=== PATIENT | female | born 1980 | race Caucasian/White ===

== ENCOUNTER 2025-02-23 10:06 | Emergency (ER) | payer OTHER, SELFPAY ==
[2025-02-23 10:08] VITALS: BP 134/96
[2025-02-23 10:48] LABS: Hematocrit 35.9 % (37.0-47.0); Hemoglobin 12.0 g/dL (12.0-16.0); Mean Corp Hgb Conc. 33.4 g/dL (33.0-37.0); Mean Corpuscular Volume 82.3 fL (81.0-99.0); Nucleated Red Blood Cells % 0 %; Platelet Count 163 10^3/uL (130-400); Red Cell Dist. Width 13.6 % (11.5-14.5)
[2025-02-23 11:02] LABS: ALT (SGPT) 16 U/L (0-35); AST (SGOT) 17 U/L (14-36); Albumin 4.3 g/dl (3.5-5.0); Alkaline Phosphatase 34 U/L (38-126); Blood Urea Nitrogen 11 mg/dl (7-17); Calcium 9.0 mg/dl (8.4-10.2); Carbon Dioxide 22 mmol/L (22-30); Chloride 107 mmol/L (98-107); Glucose 115 mg/dl (70-99); Potassium 4.0 mmol/L (3.5-5.1); Sodium 138 mmol/L (135-145); Total Protein 7.4 g/dl (6.3-8.2); eGFR > 60.00
--- NOTE | 2025-02-23 11:56 | ED.GENMED ---
History of Present Illness
General
Chief Complaint: Problems
Source: patient
Exam Limitations: none
Time Seen by Provider: 02/23/25 10:31
Nursing documentation reviewed up to this point in time: agreed with
History of Present Illness
History of Present Illness:
Patient is a 44-year-old female at an estimated 7 weeks gestation who presents emergency department today with vaginal bleeding. Patient states she that her last period was 01/13/2025. She had a positive at-home test on 02/11/2025.
This morning, patient began with bright red vaginal bleeding. She did pass a very small clot. She has bled through 1 pad as she states that she came directly to the emergency department. While bleeding is still present, she does think it may have
slowed down slightly.
Patient denies any associated lightheadedness, dizziness, shortness of breath. She has very minor lower abdominal cramping if she compares to menstrual cramps.
Patient has previously followed with [facility] however has not had initial appointment for this
Patient has a past history of a spontaneous miscarriage and an ectopic approximately 13 years ago. She has 5 living children.
Past History
Past History
ED Past Medical History: None
ED Past Surgical History: None
Social History
Tobacco: Non-smoker
Alcohol: Other
Personal:
Living: with family
Review of Systems
Review of Systems
Allergies reviewed?: Yes
All Other Systems: ROS reviewed and negative except as documented in HPI and ROS
Phy Exam
Physical Exam
Physical Exam:
Vitals: Patient's vital signs are stable. Afebrile
General: Patient is well appearing, no acute distress
Skin: Warm and dry, no rashes or lesions
Head: Normocephalic, atraumatic
Eyes: Sclera nonicteric.
Throat: Protecting airway
Neck: Normal ROM, no cervical spine tenderness, no meningismus
Cardiac: Regular rate and rhythm, no murmurs.
Pulm: Normal respiratory effort, no wheezes, rales, rhonchi heard on exam
Abdomen: Abdomen soft and nontender.
Pelvic: Bright red blood in vaginal vault. No obvious clots
Extremities: No evidence of cyanosis or edema
Neuro: AAOx3. Grossly intact.
Psychiatric: Normal affect.
Course
Orders/Labs/Results
Orders:
Orders
02/23/25 10:14
US W Transvaginal Urgent
Reason For Exam: 7 weeks preg. bleeding
02/23/25 10:35
Beta HCG Quantitative Urgent
Is this a screen?: No
Complete Blood Count/With Diff Urgent
Comprehensive Metabolic Panel Urgent
02/23/25 10:38
Type+Screen Urgent
02/23/25 14:32
ATMOSPHERIC TECHNICIAN CONSULT Urgent
Consulting Provider: Vira Cotton
Was physician already notified: Yes
Abnormal Lab Results
02/23/25
10:35
Hct 35.9 L %
(37.0-47.0)
MPV 13.0 H fL
(7.4-10.4)
Glucose 115 H mg/dl
(70-99)
Alkaline Phosphatase 34 L U/L
(38-126)
02/23/25 10:35
02/23/25 10:35
Vital Signs
Initial and Last Documented VS:
Initial Vital Signs
Temp Pulse Resp BP Pulse Ox
98.3 F 99 16 134/96 96
02/23/25 10:08 02/23/25 10:08 02/23/25 10:08 02/23/25 10:08 02/23/25 10:08
Last Documented Vital Signs
Temp Pulse Resp BP Pulse Ox
98.3 F 77 14 120/80 100
02/23/25 10:08 02/23/25 16:28 02/23/25 16:28 02/23/25 16:28 02/23/25 16:28
Information
Weeks gestation: Weeks: (7)
Location: Location: (potential interstitial ectopic)
MDM/Problems Addressed
Differential Diagnosis Includes:
Not limited to: Threatened , missed , subchorionic hematoma, ectopic , etc.
MDM/Problems Addressed:
44-year-old female at estimated 7 weeks gestation presenting with vaginal leading and very mild lower abdominal cramping since today. Patient hemodynamically stable. Physical exam as above. Pelvic exam reveals bright red blood in vaginal vault
without any obvious clots.
Differential includes threatened , missed , ectopic ; subchorionic hemorrhage, etc
ED plan: labs, ultrasound, blood type & screen.
Update: Labs without clinically significant abnormalities. Hemoglobin stable. Ultrasound shows concerns of possible interstitial ectopic .
Patient has remained hemodynamically stable and in no distress. These findings were immediately discussed with ATMOSPHERIC TECHNICIAN on-call, Dr. Cotton.
OBGYN down to evaluate patient at bedside. Concern is potential interstitial ectopic however patient remains stable. This will require very close monitoring with [facility] specialist � Dr. Cotton was able to arrange outpatient follow up
tomorrow at 2:30 PM at [facility].
Very strict return precautions discussed with patient and by both myself and Dr. Cotton. Her blood type is O+ � Rhogam not indicated. Patient and patients verbalized understanding.
Chronic conditions affecting care:
N/A
Acute Exacerbation and/or Progression of Chronic Illness:
N/A
*Radiology
Radiology exam reviewed: radiology read reviewed
*Pulse Oximetry
SaO2: 96
Oxygen Mode of Delivery: Room air
Patient hypoxic: no
*EKG
Interpreted by ED Provider?: NA
*Medical Science Liaison Interpretation
Rate: Medical Science Liaison- N/A
*Critical Care Note
Total Time (30-74mins, 75-104mins- exclusive of procedures): Not Applicable
Patient Management
Discussion with other providers: Tools Programmer (Case discussed with ATMOSPHERIC TECHNICIAN)
Escalation/DeEscalation of care consider admission/obs:
Discharge with MFM f/u tomorrow
ED Attending Note
-
Portions of this chart may have been created with voice recognition software.� Occasional wrong word or��sound alike� substitutions may have occurred due to the inherent limitations of voice recognition software.
Discharge Plan
Departure
Patient Disposition: Home (Routine Discharge)
Date of Disposition: 02/23/25
Time of Disposition: 16:27
Patient with high blood pressure during this ER visit?: No
Discharge Problem:
Vaginal bleeding during , Ectopic
Instructions: Threatened Miscarriage (DC), Ectopic (DC), Bleeding in early (DC)
Prescriptions:
No Action
vit-iron fum-folic ac 1 EACH tablet
1 tab PO DAILY
acetaminophen 325 mg Tablet
650 mg PO Q4HPRN PRN (Reason: mild pain) Qty: 0 0RF
ibuprofen 600 mg Tablet
600 mg PO Q4HPRN PRN (Reason: cramps) Qty: 0 0RF
Referrals:
NONE,* [Family Provider, Internal Medicine]
Activity Restrictions/Additional Instructions:
RETURN TO THE EMERGENCY DEPARTMENT WITH ANY FEVER, ABDOMINAL PAIN, PERSISTENT/HEAVY VAGINAL BLEEDING, LIGHTHEADEDNESS, DIZZINESS, OR EPISODES OF FAINTING, WORSENING IN CURRENT SYMPTOMS, OR ANY OTHER CONCERNS
- As discussed your test was positive today in the emergency department. Your ultrasound findings are concerning for possible ectopic . This will require further management with an ATMOSPHERIC TECHNICIAN specialist.
- Please follow-up with the MFM specialist tomorrow at 2:30PM. Please arrive at 2:00PM
Monitor your symptoms closely and return to the emergency department with any acute worsening/new symptoms or any other concerns
Appointment:
February 24, 2025 at 2:30 PM at [facility]
[address], [address], [address]
Interventions
Interventions:
*Risk Screen - Suicide Last Done: 02/23/25 10:08
*General Assessment Last Done: 02/23/25 10:34
*Neglect/Abuse Screening Last Done: 02/23/25 10:08
*ED COVID-19 Vaccine History Last Done: 02/23/25 10:34
*ED Influenza Vaccine History Last Done: 02/23/25 10:34
*Nursing Disposition Last Done: 02/23/25 17:00
ED-Female Genitourinary Assessment Last Done: 02/23/25 10:34
Discharge Date and Time
Discharge Date/Time: 02/23/25 17:01
Print Language: BHUTANESE
[2025-02-23 12:20] LABS: Beta HCG Quantitative 16981.00 mIU/ml
[2025-02-23 13:07] VITALS: BP 123/80
--- NOTE | 2025-02-23 16:21 | CON.MD ---
Consultation - Medical
-
Brandy is a 44-year-old -0-2-5 [place]an speaking female with LMP 01/13/2025 (28-day cycles) who presented to the emergency room with complaint of vaginal bleeding and positive test at home. She is accompanied by her who speaks
fluent [place]. Visit was done with the patient and her through the [facility] language line-[place] language, crate opener Sue Mckoy, [id number].
She is estimated to be approximately 6 weeks by dates. Patient reports noticing a pulling sensation in her mid lower pelvic region. Shortly after, she used the bathroom and noticed blood after urinating and with wiping. She denies any
sharp abdominal pain. She describes menstrual type cramping, slightly more right-sided than left. She became nervous and came to the emergency room for further evaluation. She has not established care yet. She delivered her last child
at [facility] in 2021 (not our practice).
OB history: 5 full-term pregnancies-4 , last for nonreassuring heart rate. 1 ectopic treated with methotrexate 13 years ago. 1 spontaneous miscarriage.
PMH: Negative
PSH: section-LTCS 2021 for nonreassuring heart rate
NKDA
Medications: vitamin
Social history: , lives with and 5 children. Children's ages range 3-20yo. Denies tobacco, vaping, illicit drug use. When not , infrequently has alcoholic beverage.
Family history. Noncontributory; no significant medical problems
ROS: + vaginal bleeding, + mild cramps, Negative: fever, chills, severe abdominal pain, N/V/D/C, dizziness , lightheadedness
Physical exam:
General: Well-appearing female, no acute distress. Appears comfortable conversing, sitting in bed. Ambulates without apparent discomfort.
Vital signs: BP 123/80, 120/80 temp 98.3 weight 73.6 kg pulse 79
Heart: Regular rate and rhythm
Pulmonary: Clear, no increased work of breathing
Abdomen: Soft, ND NT, no guarding, rebound, rigidity. Minimal tenderness lower pelvic region in midline and slightly toward right side of midline.
Speculum exam: Moderate blood in the vaginal vault-filled approximately 3 large scope wet Q-tip swabs. Cervix grossly appears normal, not dilated. No gross lesions.
Cervix: Closed, thick
Uterus: Mobile, minimal tenderness with exam
Adnexa: No fullness or tenderness appreciated.
Extremities: No edema, no calf pain
Labs:
WBC 5.6> 12.0/35.9<Plt 163
Sodium 138, potassium 4.0, chloride 107, carbon dioxide 22, BUN 11, creatinine 0.8, AST 17, ALT 16
bHCG 16,981.00
Blood type O+, antibody screen negative
Pelvic ultrasound summary: Ovoid focus of fluid echogenicity is present eccentric to the endometrial canal, located within the right posterior aspect of the uterus relative to the endometrial canal. This is likely an eccentric gestational sac, with
no evidence for embryo or heartbeat at this time.
Findings raise concern for interstitial ectopic .
Close follow-up is advised, with follow-up ultrasound, and follow-up serial quantitative beta-hCG values.
Maternal right ovary is not visualized. Normal appearance of the maternal left ovary.
No significant free pelvic fluid.
Impression:
1. Multi female approximately 6 weeks by LMP with vaginal bleeding and ultrasound findings concerning for interstitial . Ultrasound demonstrates fluid echogenicity which could be early gestational sac. There is no
pole, FHT or yolk sac identified.
- The patient is presently hemodynamically stable with no acute abdominal pain.
-Exact location of cannot be confirmed as US only shows fluid collection at this time. Possible interstitial , ectopic , threatend ab at in the list of differential diasnoses.
2. AMA
3. History of prior ectopic
4. This is a desired
Plan:
Findings were reviewed with Dr. Chaudhary (radiologist) and I also discussed with Dr. Arik Sibley ([facility]) as well as lengthy discussion with the patient and her . I explained to them that there are several concerns including her vaginal bleeding
as well as ultrasound findings which raises the question of a possible interstitial . I explained the difference between intrauterine, ectopic and interstitial pregnancies. Explained that fluid collection could represent a gestational sac
however definitive location of the cannot be confirmed at this time due to early gestational age. I explained the implications of an ectopic or an interstitial which can be life-threatening if there is rupture. Presently she is
not having any acute abdominal pain and is hemodynamically stable.
Close evaluation and continued monitoring is warranted. Because of the concern that this may represent an interstitial , it was advised that the patient follow-up with maternal- medicine services for further evaluation and treatment
as indicated. I contacted the [facility] at [facility] and spoke with Dr. Jeni Aguila ([facility]) to review findings and she has agreed to see Brandy tomorrow, 02/24 at the [facility] in [place] at
2:30pm. Information and address was provided to Brandy and her . I explained that if this is an interstitial , treatment would be necessary, which could involve injection of methotrexate into the gestational sac or possible surgical
intervention. Neither of these options would be something we would recommended or be able to perform at [facility] due to complex nature of condition and having appropriate trained personnel to carry out these complex procedures.
Brandy and her were counseled that if this is not an interstitial and instead is an intrauterine , she is at risk for miscarriage because of the bleeding and serial hCGs would need to be followed as well. She was counseled
that urgent medical care should be sought if she has fainting, feels as if she would pass out, has severe abdominal pain or very heavy bleeding. For the symptoms she should seek prompt attention in an emergency room. The patient and her
expressed understanding of the above instructions. They were made aware that we cannot rule out possible ectopic and the list of possibilities at this time. They are aware that because of the early nature of her diagnosis
cannot definitively be made at this time but very close follow-up is warranted because of the concerns addressed above. Patient and her seem to be understanding, reliable and they both expressed understanding of the instructions.
Time spent reviewing records, documentation, [id number] counseling time, coordination of care including telephone consultations with radiology, MFM x 2 doctors was 120 minutes.
Consultation
-
Date/Time Consultation Requested: 02/23/25
Date/Time Consultation Performed: 02/23/25 15:00
Requesting Provider: Meagan Lopez PA-C
Performing Provider: Vira Cotton DO
Reason for Consultation: possible interstitial
[2025-02-23 16:28] VITALS: BP 120/80
== END 2025-02-23 17:01 | disposition home or self-care (01) ==
LOC: EMR 10:06
PROVIDERS: CONSULT PHYSICIAN Obstetrics & Gynecology; EMERGENCY PHYSICIAN Student in an Organized Health Care Education/Training Program
DX: O00.80 Other ectopic pregnancy without intrauterine pregnancy (principal); O09.521 Supervision of elderly multigravida, first trimester; Z3A.01 Less than 8 weeks gestation of pregnancy
CPT/HCPCS: 99284; 76801; 76817; 80053; 84702; 85025; 86850; 86900; 86901

== ENCOUNTER 2025-03-01 16:33 | Emergency (ER) | payer OTHER, SELFPAY ==
[2025-03-01 16:35] VITALS: BP 132/80
[2025-03-01 17:48] LABS: Beta HCG Quantitative 41426.00 mIU/ml
--- NOTE | 2025-03-01 18:05 | ED.GENMED ---
History of Present Illness
General
Chief Complaint: Abnormal Lab Value
Source: patient and family
Exam Limitations: none
Time Seen by Provider: 03/01/25 17:53
Nursing documentation reviewed up to this point in time: agreed with
History of Present Illness
History of Present Illness:
44-year-old female presenting to the emergency department today for a repeat hCG level she was here 1 week ago and had some concern for potential ectopic there was a fair discussion at the time of steps. She was referred to [facility]. She has followed up with them already 5 days ago and had a repeated ultrasound. They recommended a repeated hCG level prior to her return appointment which is scheduled for 03/03/2025. She claims that all symptoms have resolved she no
longer has any bleeding no discomfort no lightheadedness no nausea no vomiting or any other additional symptoms.
Past History
Past History
ED Past Medical History: None
ED Past Surgical History: None
Social History
Tobacco: Non-smoker
Alcohol: Other
Personal:
Living: with family
Review of Systems
Review of Systems
Allergies reviewed?: Yes
All Other Systems: ROS reviewed and negative except as documented in HPI and ROS
Phy Exam
Physical Exam
Physical Exam:
GENERAL: Alert , in no apparent distress
EYE: Normal appearance of the eyes.
NECK: No visible abnormality, trachea midline
ENT: No visible abnormalities mmm.
LUNGS: no acute respiratory distress
NEUROLOGICAL: Alert and oriented, no focal neuro deficits
SKIN: Warm and dry, skin intact.
MUSCULOSKELETAL: Moving all extremities normally
PSYCH: Normal and appropriate interaction.
Course
Orders/Labs/Results
Orders:
Orders
03/01/25 16:41
HCG, Beta Quantitative [Beta HCG Quantitative] Urgent
Is this a screen?: No
Vital Signs
Initial and Last Documented VS:
Initial Vital Signs
Temp Pulse Resp BP Pulse Ox
98.1 F 79 20 132/80 99
03/01/25 16:35 03/01/25 16:35 03/01/25 16:35 03/01/25 16:35 03/01/25 16:35
Last Documented Vital Signs
Temp Pulse Resp BP Pulse Ox
98.1 F 79 20 132/80 99
03/01/25 16:35 03/01/25 16:35 03/01/25 16:35 03/01/25 16:35 03/01/25 16:35
MDM/Problems Addressed
MDM/Problems Addressed:
44-year-old female presenting today for repeat hCG level. No ongoing symptoms does have scheduled follow-up with [facility]. No concerns acutely at this time. hCG level was drawn otherwise we will follow-up.
*Pulse Oximetry
SaO2: 99
Oxygen Mode of Delivery: Room air
Patient hypoxic: no (99)
*Critical Care Note
Total Time (30-74mins, 75-104mins- exclusive of procedures): Not Applicable
ED Attending Note
-
Portions of this chart may have been created with voice recognition software.� Occasional wrong word or��sound alike� substitutions may have occurred due to the inherent limitations of voice recognition software.
Discharge Plan
Departure
Patient Disposition: Home (Routine Discharge)
Date of Disposition: 03/01/25
Time of Disposition: 18:08
Patient with high blood pressure during this ER visit?: No
Condition: Good
Covid-19: Not Applicable
Discharge Problem:
Vaginal bleeding during
Instructions: Ectopic (DC)
Prescriptions:
No Action
vit-iron fum-folic ac 1 EACH tablet
1 tab PO DAILY
acetaminophen 325 mg Tablet
650 mg PO Q4HPRN PRN (Reason: mild pain) Qty: 0 0RF
ibuprofen 600 mg Tablet
600 mg PO Q4HPRN PRN (Reason: cramps) Qty: 0 0RF
Activity Restrictions/Additional Instructions:
You came to the emergency department for repeated hCG level. Please follow-up closely with your obstetric team. Immediately return for any progressive symptoms.
Interventions
Interventions:
*General Assessment Last Done: 03/01/25 16:35
Discharge Date and Time
Print Language: TAJIK
== END 2025-03-01 18:34 | disposition home or self-care (01) ==
LOC: EMR 16:33
PROVIDERS: EMERGENCY PHYSICIAN Student in an Organized Health Care Education/Training Program
DX: O46.90 Antepartum hemorrhage, unspecified, unspecified trimester (principal)
CPT/HCPCS: 99283; 84702